=== PATIENT | female | born 2000 | race Native Hawaiian/Other Pacific Islander ===

== ENCOUNTER 2020-08-06 15:41 | Emergency (ER) | payer OTHER ==
[~2020-08-06] VITALS: Ht 162.6 cm; Wt 67.1 kg
[2020-08-06 15:49] VITALS: BP 140/84; TEMP 97.1
[2020-08-06 16:56] LABS: PLATELET COUNT 313 K/uL (152-353)
[2020-08-06 17:27] LABS: POTASSIUM 3.6 mmol/L (3.6-5.2)
== END 2020-08-06 18:49 | disposition home or self-care (01) ==
LOC: ED 15:41
PROVIDERS: Emergency Medicine
DX: R10.13 Epigastric pain (principal); Z53.29 Procedure and treatment not carried out because of patient's decision for other reasons
CPT/HCPCS: 80053; 80307; 81000; 81025; 82150; 83690; 85027; 96374; 96375; 99284; J2175; J2405